=== PATIENT | male | born 1985 | race Two or more races ===

== ENCOUNTER 2024-09-09 17:00 | Outpatient (RCR) | payer MEDICAID, SELFPAY ==
--- NOTE | 2024-08-25 17:31 | PT.ODAYNRPT ---
PT Outpatient Daily Note OP Daily Note Outpatient Physical Therapy Treatment Date: 08/25/24 Visit Reasons: Low back pain Subjective: LBP level is 7-8/10 and he can't lift anything Objective: See F/S for therex Assessment: Good abdominal activation with supine lumbar stabilization therex but some hip weakness with resisted abduction with theraband. Plan: Continue per POC Length of Time (minutes) of Treatment: 30 Minutes Procedure Charges Therapeutic Exercise 30 minutes: Yes
--- NOTE | 2024-09-02 17:53 | PT.ODAYNRPT ---
PT Outpatient Daily Note OP Daily Note Outpatient Physical Therapy Treatment Date: 09/02/24 Visit Reasons: Low back pain Subjective: LBP level is 7-8/10 and he can't lift anything Objective: See F/S for therex Assessment: Good abdominal activation with supine lumbar stabilization therex but some hip weakness with resisted abduction with theraband. Plan: Continue per POC Length of Time (minutes) of Treatment: 30 Minutes Procedure Charges Therapeutic Exercise 30 minutes: Yes
--- NOTE | 2024-09-07 17:40 | PT.ODAYNRPT ---
PT Outpatient Daily Note OP Daily Note Outpatient Physical Therapy Treatment Date: 09/07/24 Visit Reasons: Low back pain Subjective: Continued LBP level is 7-8/10 and he can't lift anything Objective: See F/S for therex Assessment: Good abdominal activation with supine lumbar stabilization therex but some LBP with lumbar flexion Plan: Continue per POC Length of Time (minutes) of Treatment: 30 Minutes Procedure Charges Therapeutic Exercise 30 minutes: Yes
--- NOTE | 2024-09-09 17:43 | PT.ODS1RPT ---
PT OP Progress/Discharge Note Date of Service: 09/09/24 Progress Note/DC Note Progress Note/Discharge Note: DC Note Patient Information Visit Reasons: Low back pain Service Continue Service or Discharge: Discharge Discharge Date: 09/09/24 Status Subjective: Continued LBP level is 7-8/10 and he can't lift anything. Not much change in pain level since starting therapy. In the morning he has to crawl out of bed since he can't straighten spine right away. He is wearing back brace full-time. Objective: See F/S for therex Trunk ArOM: ? B SB 50% of normal with pain ? Extension: 20% with pain around L4-5, L5-S1 ? Flexion: 15 from floor with LBP ? B rotation: 60% with pain ? SLR ROM: 45 deg with posterior knee neural tension, LBP ? TTP: moderate of lumbar paraspinals ? Assessment: Pt has attended 05/28 Rx sessions with limited progress with therapy goals due to continued LBP. Pt has continued LBP with sitting more than 15 mins and didn't meet HH chore tolerance goal of 60 mins and said he can do about 15-20. Pt has good abdominal activation with supine lumbar stabilization therex but some LBP with lumbar flexion in standing. Thank you for your referrals. Plan: D/C with [facility] Procedure Charges Therapeutic Exercise 30 minutes: Yes
== END 2024-09-19 23:59 | disposition home or self-care (01) ==
LOC: CPTX 17:00
PROVIDERS: PCP Specialist; Referring Provider Specialist; Visit Provider Specialist
DX: M54.50 Low back pain, unspecified (principal)
CPT/HCPCS: 97110

== ENCOUNTER → 2024-09-21 | Outpatient (CLI) | payer MEDICAID, SELFPAY ==
--- NOTE | 2024-09-21 | XR_ITS ---
Examination: Lumbar spine 4 views TECHNIQUE: AP, standing lateral neutral position flexion position extension position total 4 views Exam date and time: September 21, 2000 2413 hours INDICATIONS: Low back pain this week FINDINGS: Moderate compression fracture L1 which may be subacute Clinical correlation advised Marked decreased range of motion between flexion and extension IMPRESSION: Recommend CT scan lumbar spine without contrast follow-up to best assess age of the compression fracture L1
== END | disposition home or self-care (01) ==
LOC: CDIM 12:08
PROVIDERS: Referring Provider Specialist; Visit Provider Specialist
DX: M48.56XA Collapsed vertebra, not elsewhere classified, lumbar region, initial encounter for fracture (principal)
CPT/HCPCS: 72110